=== PATIENT | male | born 1960 | race Hispanic/Latino ===

== ENCOUNTER 2017-08-04 09:12 | Day surgery (SDC) | payer OTHER ==
[2017-08-04] MEDS ORDERED: Lactated Ringer's 1,000 ML IV ONE (09:31)
[2017-08-04 09:34] VITALS: BMI 31.4
[2017-08-04] MEDS ORDERED: Propofol 10 mg/ml Inj (20 ML) ONE (09:40)
[2017-08-04] MEDS ORDERED: Lidocaine 2% MPF (5 ml) Inj ONE (09:41)
[2017-08-04 10:07] VITALS: TEMP 97.2
[2017-08-04 10:30] VITALS: BP 122/83; PULSE 85; RESP 17; O2SAT 98
== END 2017-08-04 11:30 | disposition home or self-care (01) ==
LOC: H.ENDO 09:12
PROVIDERS: ATTEND Internal Medicine Gastroenterology
DX: Z12.11 Encounter for screening for malignant neoplasm of colon (principal); K63.3 Ulcer of intestine; K64.4 Residual hemorrhoidal skin tags; K64.8 Other hemorrhoids; K57.30 Diverticulosis of large intestine without perforation or abscess without bleeding; I10 Essential (primary) hypertension; R73.03 Prediabetes; E78.5 Hyperlipidemia, unspecified; Z80.3 Family history of malignant neoplasm of breast; Z80.0 Family history of malignant neoplasm of digestive organs; Z88.1 Allergy status to other antibiotic agents; Z91.018 Allergy to other foods
CPT/HCPCS: 45380; 88305; J2704; J7120